=== PATIENT | male | born 1945 | race Caucasian/White ===

== ENCOUNTER 2021-06-06 21:05 | Emergency (ER) | payer MEDICARE ==
[2021-06-06 23:00] LABS: HEMOGLOBIN 13.6 gm/dl (14.0-17.5); RED BLOOD COUNT 4.56 M/UL (4.20-5.50); WHITE BLOOD COUNT 7.5 K/UL (4.5-11.0)
[2021-06-06 23:30] LABS: BUN/CREATININE RATIO 16 (0-10)
== END 2021-06-06 23:32 | disposition home or self-care (01) ==
LOC: ER1 21:05
PROVIDERS: Emergency Medicine
DX: G45.9 Transient cerebral ischemic attack, unspecified (principal)
CPT/HCPCS: 70450; 71045; 80053; 82550; 82553; 83874; 84484; 85025; 85610; 85730; 93005; 99285